=== PATIENT | male | born 1985 | race Caucasian/White ===

== ENCOUNTER 2019-07-02 18:26 | Emergency (ER) | payer MEDICAID ==
[~2019-07-02] VITALS: Ht 175.3 cm; Wt 86.2 kg
[2019-07-02 18:37] VITALS: Ht 175.3 cm; Wt 86.2 kg
[2019-07-02 20:34] VITALS: BP 117/77
== END 2019-07-02 20:34 | disposition home or self-care (01) ==
LOC: ED 18:26
DX: R06.00 Dyspnea, unspecified (principal); R06.2 Wheezing; R06.02 Shortness of breath; R05 Cough; J45.909 Unspecified asthma, uncomplicated; Z76.0 Encounter for issue of repeat prescription
CPT/HCPCS: J7512; J7620